=== PATIENT | female | born 1995 | race Caucasian/White ===

== ENCOUNTER 2020-11-12 04:13 | Inpatient (IN) | payer OTHER ==
[2020-11-12] VITALS (16 sets, daily range): BP systolic 103–154; BP diastolic 53–75; PULSE 60–114; TEMP 97.8–98.1
[~2020-11-12] VITALS: Ht 160 cm; Wt 74.5 kg
--- NOTE | 2020-11-12 04:20 | NUR ---
Pt arrived on unit ambulatory, escorted by and with complaints of contractions every "couple" minutes. Pt denies any leaking of fluid, reports some spotting and also reports normal movement. EFM and toco monitors started. SVE by this RN -. Vital signs WNL.
[2020-11-12 04:46] LABS: BASO % 0.3 % (0.0-2.0); EOS % 0.4 % (0-4.0); GRAN # 8.2 (1.4-6.5); GRAN % 76.7 % (42.2-75.2); HEMATOCRIT 39.7 % (37.0-47.0); HEMOGLOBIN 13.4 g/dl (12.5-16.0); LYMPH # 1.6 (1.2-3.4); LYMPH % 15.3 % (20.0-51.0); MEAN CELL VOLUME 90 fl (80.0-100.0); MEAN CORPUSCULAR HEMOGLOBIN 30 pg (27.0-31.0); MEAN CORPUSCULAR HGB CONC 34 g/dl (33.0-37.0); MEAN PLATELET VOLUME 12.4 fl (7.4-10.4); MONO # 0.7 (0.1-0.6); MONO % 6.8 % (1.7-9.3); PLATELET COUNT 183 K/mm3 (130-400); RED BLOOD COUNT 4.42 M/mm3 (4.10-5.30); REDCELL DISTRIBUTION WIDTH-CV 13.5 % (11.5-14.5)
[2020-11-12] MEDS ORDERED: PRENATAL (05:19)
[2020-11-12] MEDS ORDERED: COLACE 100100 MG/CAP PO (05:20)
[2020-11-12] MEDS ORDERED: NATURAL IRON65 MG (05:20)
--- NOTE | 2020-11-12 05:25 | NUR ---
0525- CB Reyes at the bedside for epidural placement. Pt sitting up on the edge of the bed. SPO2 monitor started. 0530- Pt reports SROM. 0533- Test dose done per CB Reyes. See anesthesia records for details. 0540- Assisted pt to supine with left wedge position. EFM and toco monitors adjusted.
--- NOTE | 2020-11-12 05:52 | NUR ---
0552- FHR decel and audible in the 90's times 5 minutes. Frequent position changes between right lateral and left lateral. 0558- Assisted pt to knee chest position. FHR with slow return to baseline 135bpm. 0602- Assisted pt back to supine position with left wedge. 0605- Dr. Qureshi at the bedside. FHR tracing reviewed. 0607- SVE per Dr. Qureshi 9cm and forebag ruptured. Continue labor plan of care. Information reviewed with pt and at the bedside.
--- NOTE | 2020-11-12 06:30 | NUR ---
FHT'S WITH EARLY DECELS AND PROLONGE DECEL FOR 3 MINUES TO THE 80-90'S. PT'S BP DOWN AFTER EPIDURAL PLACEMENT TO 92/53, 85/48, 84/50. EPHEDRINE 10MG IV GIVEN AT 0625. BP UP TO 109/53 AT 0629. SVE WITH COMPLETE DILATION. PT FEELING STRONG URGE TO PUSH. PUSHING STARTED AT 0629
--- NOTE | 2020-11-12 06:46 | NUR ---
PUSHING CONTINUES. FHT'S DIFFICULT TO MONITOR-WILL BE IN THE 150-160'S AND THEN DROP TO THE 80-90'S BRIEFLY AFTER PUSHING. DR LYON CALLED TO COME FOR DELIVERY AT 0640. DR MUONZ AT 0642. PUSHING CONTINUES. OF FEMALE AT [address] LYON.
--- NOTE | 2020-11-12 06:50 | NUR ---
DR LYON AT BEDSIDE REPAIRING 2ND DEGREE AND PERICLITORAL LACERATIONS. PITOCIN STARTED AT 333ML/HR AFTER DELIVERY OF PLACENTA. FUNDUS FIRMS WITH MASSAGE. CLOTS EXPRESSED WITH MASSAGE.
--- NOTE | 2020-11-12 07:35 | NUR ---
VAGINAL BLEEDING REMAINS MODERATE WITH SMALL TO MODERATE AMOUNT OF CLOTS EXPRESSED WITH FUNDAL MASSAGE. WILL CALL PHYSICIAN.
--- NOTE | 2020-11-12 07:50 | NUR ---
PER ORDER FROM DR AGUAYO, IM METHERGINE GIVEN AT 0735. FUNDAL MASSAGE AT 0750 WITH SMALL AMOUNT OF CLOTS EXPRESSED WITH SMALL AMOUNT OF FREE FLOW.
--- NOTE | 2020-11-12 08:10 | NUR ---
MUCH SMALLER CLOTS AND SMALLER AMOUNT OF CLOTS EXPRESSED WITH FUNDAL MASSAGE.
--- NOTE | 2020-11-12 08:25 | NUR ---
NO CLOTS EXPRESSED WITH FUNDAL MASSAGE. LEGS ARE NO LONGER NUMB. REPORTS HIPS A LITTLE NUMB STILL. DR AGUAYO IN TO SEE PT AT 0820.
--- NOTE | 2020-11-12 08:50 | NUR ---
PT AMBULATES TO BATHROOM WITH STANDBY ASSISTANCE. VOIDS WITHOUT DIFFICULTY. PERICARE PERFORMED. NEW PERIPAD, UNDERWEAR, AND GOWN IN PLACE. PT AMBULATES TO THE NURSERY TO WATCH BABY'S BATH.
[2020-11-13 02:00] VITALS: BP 114/74; PULSE 68; TEMP 98
[2020-11-13] MEDS ORDERED: IBU800 M1 PO (07:03)
[2020-11-13 07:45] VITALS: BP 107/69; PULSE 60; TEMP 98.2
== END 2020-11-13 10:30 | disposition home or self-care (01) | DRG 768 ==
LOC: LDRO 04:13 → LDR 04:33 → OB 09:00
PROVIDERS: Obstetrics & Gynecology; ADMIT Obstetrics & Gynecology
PROC: 10E0XZZ Delivery of Products of Conception, External Approach (ICD-10-PCS; principal; 2020-11-12)
PROC: 0UQJXZZ Repair Clitoris, External Approach (ICD-10-PCS; 2020-11-12)
PROC: 0KQM0ZZ Repair Perineum Muscle, Open Approach (ICD-10-PCS; 2020-11-12)
DX: O99.02 Anemia complicating childbirth (principal); Z37.0 Single live birth; Z3A.39 39 weeks gestation of pregnancy; O70.1 Second degree perineal laceration during delivery
CPT/HCPCS: J2210; J2400; J2590; J7120

== ENCOUNTER 2023-08-09 15:03 | Inpatient (IN) | payer SELFPAY ==
[~2023-08-09] VITALS: Ht 160 cm; Wt 74.1 kg
[2023-08-09] VITALS (12 sets, daily range): BP systolic 106–124; BP diastolic 55–75; PULSE 56–111; TEMP 98–98.2
[~2023-08-09 15:03] MED LIST: COLACE 100100 MG/CAP PO; IBU800 M1 PO; NATURAL IRON65 MG; PRENATAL
[2023-08-09 16:18] LABS: BASO # 0.1 K/mm3 (0.0-0.2); BASO % 0.3 % (0.0-2.0); EOS % 0.1 % (0.0-4.0); GRAN # 11.6 K/mm3 (1.4-6.5); GRAN % 81.1 % (42.2-75.2); HEMATOCRIT 40.9 % (37.0-47.0); HEMOGLOBIN 13.8 g/dl (12.5-16.0); LYMPH # 1.8 K/mm3 (1.2-3.4); LYMPH % 12.6 % (20.0-51.0); MEAN CELL VOLUME 88 fl (80.0-100.0); MEAN CORPUSCULAR HEMOGLOBIN 30 pg (27-31); MEAN CORPUSCULAR HGB CONC 34 g/dl (33.0-37.0); MEAN PLATELET VOLUME 12.8 fl (7.4-10.4); MONO # 0.7 K/mm3 (0.1-0.6); MONO % 5.1 % (1.7-9.3); PLATELET COUNT 200 K/mm3 (130-400); RED BLOOD COUNT 4.63 M/mm3 (4.10-5.30); REDCELL DISTRIBUTION WIDTH-CV 13.7 % (11.5-14.5)
--- NOTE | 2023-08-09 18:29 | NUR ---
PATIENT TO ROOM AT 1515. COMPLAINTS OF CTX, NO LEAKING OF FLUID. PATIENT ON MONITORS AND SVE OF 8:90:0. DR AGUAYO CALLED AND IV STARTED. PATIENT ON MONITORS FOR AN HOUR. CATEGORY 1 TRACING WITH GOOD MOVEMENT. OLIVIER OK WITH PATIENT GOING TO SHOWER. PATIENT IN SHOWER FOR AND HOUR AND A HALF UNTIL 1747 PER OLIVIER. PATIENT REQUESTS TO BE CHECKED AND BACK TO BED SVE OF 8-9:90:[address] AGUAYO. PATIENT REQUESTS EPIDURAL STEPHANIE NOTIFIED AND IN HOUSE. TEST DOSE OF EPIDURAL AT 1756. PATIENT TOLERATED WELL. LR BOLUS INFUSING. PATIENT GETTING PAIN RELIEF. SVE BY DR AGUAYO AND AROM AT 1810. PATIENT TOLERATED WELL. VITAL SIGNS STABLE. DR AGUAYO AT DESK. CHANGE OF SHIFT REPORT TO RAPHAEL WHO WILL RESUME CARE.
--- NOTE | 2023-08-09 19:00 | NUR ---
1827- DR. AGUAYO AT BEDSIDE. 1829- DR. AGUAYO SVE. COMPLETE 1832- BED BROKEN DOWN FOR DELIVERY. 1834- PATIENT BEGINS PUSHING WITH CONTRACTIONS. 1839- SPONTANEOUS VAGINAL DELIVERY OF VIABLE BABY BOY. CORD CLAMPED BY DR. AGUAYO AND CUT BY FOB. BABY TO MOTHERS ABDOMEN. DRIED AND STIMULATED. BABY CARES ASSUMED BY NURSERY RN. 1852- SPONTANEOUS DELIVERY OF INTACT PLACENTA. STARTED PITOCIN AT 333ML/HR PER PROTOCOL. 1899- RECOVERY STARTED.
--- NOTE | 2023-08-09 21:52 | NUR ---
2129- PATIENT ABLE TO LIFT BILATERAL LOWER EXTREMITIES. PATIENT SITTING ON EDGE OF BED. EPIDURAL CATHETER REMOVED WITH TIP INTACT. PATIENT TOLERATED WELL. PATIENT DENIES FEELING LIGHT HEADED. 2134- PATIENT AMBULATED TO RESTROOM FOLLOWING DELIVERY. PERICARE PROVIDED. HOSPITAL GOWN CHANGED. PATIENT ABLE TO VOID WITHOUT DIFFICULTY. MESH UNDERWEAR AND PAD ON. 2144- PATIENT AMBULATORY TO ROOM. PATIENT ORIENTED TO ROOM. PATIENT DENIES NEED FOR PAIN MEDICATION. QUESTIONS ENCOURAGED AND ANSWERED.
[2023-08-10 01:51] VITALS: BP 102/61; PULSE 74; TEMP 98.6
[2023-08-10] MEDS ORDERED: MOTRIN 800800 MG/TAB PO (07:10)
[2023-08-10 07:40] VITALS: BP 105/66; PULSE 69; TEMP 97.9
--- NOTE | 2023-08-10 19:00 | NUR ---
1900 DRESSED AND WAITING TO BE DISMISSED TO HOME. 2009 DISMISSAL INSTRUCTION GONE OVER WITH QUESTIONS ANSWERED 2019 HOME PER AMB ACC BY AND BABY
== END 2023-08-10 20:20 | disposition home or self-care (01) | DRG 807 ==
LOC: LDRO 15:03 → LDR 15:57 → OB 22:16
PROVIDERS: ADMIT Obstetrics & Gynecology
PROC: 10E0XZZ Delivery of Products of Conception, External Approach (ICD-10-PCS; principal; 2023-08-09)
PROC: 10907ZC Drainage of Amniotic Fluid, Therapeutic from Products of Conception, Via Natural or Artificial Opening (ICD-10-PCS; 2023-08-09)
DX: O48.0 Post-term pregnancy (principal); Z37.0 Single live birth; Z3A.41 41 weeks gestation of pregnancy; O69.81X0 Labor and delivery complicated by cord around neck, without compression, not applicable or unspecified
CPT/HCPCS: J2590; J2795; J7120